=== PATIENT | female | born 1955 | race Caucasian/White ===

== ENCOUNTER → 2018-08-26 | Outpatient (CLI) | payer OTHER ==
[~2018-08-26] MED LIST: ADULT LOW DOSE81 MG PO; AVAPRO 150 MG150 M1 PO; BACTRIM DS TAB1 EACH PO; BENTYL 10 MG CA10 MG PO; CALCIUM 600 +1 EAC1 PO; CELLCEPT500 MG PO; COLESTIPOL HCL1 G1 PO; DUONEB 2.5-0.5 M3 ML; FISH OIL 1,2001 EAC3 PO; IMURAN 50MG TAB50 M1 PO; LEVAQUIN 750 M750 MG PO; MEDROLDOSEPACK PO; MICARDIS 80 MG80 MG PO; NAPROSYN500 MG PO; NEURONTIN 400400 M1 PO; NORCO 5-325 TA1 EACH PO; OMEPRAZOLE 20 M20 MG PO; ONGLYZA5 MG PO; OSTERA PO; OSTERA TABLET1 EACH PO; PREDNISONE 1 MG1 M1 PO; PREDNISONE 10 M10 M1 PO; PRISTIQ50 M1; PRISTIQ50 M1 PO; PRISTIQ50 MG PO; PROAIR HFA8.5 GM INH; PROMETHAZINE D480 ML PO; PROPRANOLOL 20M20 MG PO; PROPRANOLOL 8080 M1 PO; PURINETHOL50 MG PO; SIMVASTATIN20 MG PO; SLOW FE 160MG160 MG PO; SYNTHROID125 MCG PO; TESSALON PERLE100 MG PO; TOLTERODINE TART4 MG PO; TRAZODONE HCL100 MG PO; TUSSIN COUGH15 MG; VENLAFAXINE HC225 MG PO; VITAMIN D3400 UNIT PO; XYZAL5 MG PO; ZETIA10 MG PO; ZOCOR20 MG PO; ZOFRAN ODT4 MG PO
== END ==
LOC: M.ULTRA 07:30
DX: K76.0 Fatty (change of) liver, not elsewhere classified (principal); K75.4 Autoimmune hepatitis; D89.9 Disorder involving the immune mechanism, unspecified; K74.0 Hepatic fibrosis

== ENCOUNTER → 2018-10-02 | Outpatient (CLI) | payer OTHER ==
[2018-10-02 11:53] LABS: ABSOLUTE BASOPHILS 0.1 thou/uL (0.0-0.2); ABSOLUTE EOSINOPHILS 0.3 thou/uL (0.0-0.7); ABSOLUTE MONOCYTES 0.6 thou/uL (0.0-1.2); ABSOLUTE NEUTROPHILS 3.8 thou/uL (1.6-8.1); BASOPHILS 1.4 %; EOSINOPHILS 5.9 %; HEMATOCRIT 43.8 % (37.0-47.0); HEMOGLOBIN 14.5 gm/dL (12.0-15.0); LYMPHOCYTES 17.1 %; MCH 30.6 pg (26.0-34.0); MCV 92.6 fL (80.0-100.0); MONOCYTES 10.5 %; MPV 8.8 fl. (7.2-11.1); NUCLEATED RBCS 0 /100WBC; PLATELET COUNT* 294 thou/uL (150-400); POLYS 65.1 %; RBC 4.72 mil/uL (4.20-5.00); RDW-CV 13.8 % (10.5-14.5); WBC 5.8 thou/uL (4.0-11.0)
[2018-10-02 12:00] LABS: PROTIME 10.3 Seconds (9.20-11.50)
[2018-10-02 12:18] LABS: ALBUMIN 3.9 g/dL (3.4-5.0); CALCIUM 9.5 mg/dL (8.5-10.1); CREATININE 0.9 mg/dL (0.6-1.3); POTASSIUM 3.7 mmol/L (3.5-5.1); TOTAL BILIRUBIN 0.6 mg/dL (<0.1-1.0); TOTAL PROTEIN 7.9 g/dL (6.4-8.2)
== END ==
LOC: M.LAB 11:33
DX: D89.9 Disorder involving the immune mechanism, unspecified (principal); K75.4 Autoimmune hepatitis

== ENCOUNTER → 2018-12-09 | Outpatient (CLI) | payer OTHER ==
[2018-12-09 09:01] LABS: ABSOLUTE EOSINOPHILS 0.1 thou/uL (0.0-0.7); ABSOLUTE LYMPHOCYTES 1.2 thou/uL (0.8-5.3); ABSOLUTE MONOCYTES 0.5 thou/uL (0.0-1.2); ABSOLUTE NEUTROPHILS 4.4 thou/uL (1.6-8.1); BASOPHILS 0.4 %; HEMATOCRIT 41.1 % (37.0-47.0); HEMOGLOBIN 13.6 gm/dL (12.0-15.0); LYMPHOCYTES 19.5 %; MCH 29.8 pg (26.0-34.0); MCHC 33.2 g/dL (28.0-37.0); MCV 89.7 fL (80.0-100.0); MONOCYTES 8.2 %; MPV 8.6 fl. (7.2-11.1); NUCLEATED RBCS 0 /100WBC; PLATELET COUNT* 296 thou/uL (150-400); POLYS 69.9 %; RBC 4.58 mil/uL (4.20-5.00); RDW-CV 14.4 % (10.5-14.5); WBC 6.3 thou/uL (4.0-11.0)
[2018-12-09 09:43] LABS: MAGNESIUM 2.2 mg/dL (1.8-2.4)
[2018-12-09 09:57] LABS: CHOLESTEROL 159 mg/dL (<200); HDL CHOLESTEROL 34 mg/dL (>40); LDL CHOLESTEROL 102 mg/dL (<100); TC:HDL 4.7 Ratio (Not establshd); TRIGLYCERIDE 118 mg/dL (<150); VLDL 24 mg/dL (<40)
[2018-12-09 09:58] LABS: SERUM ASSESSMENT Clear
[2018-12-09 10:20] LABS: % SATURATION 31 % (20-39); IRON 81 ug/dL (50-175)
[2018-12-09 10:49] LABS: CREATININE 0.8 mg/dL (0.6-1.3); PHOSPHORUS* 4.6 mg/dL (2.5-4.9)
[2018-12-09 20:13] LABS: ALBUMIN 3.9 g/dL (3.4-5.0); CALCIUM 9.2 mg/dL (8.5-10.1); CREATININE 0.8 mg/dL (0.6-1.3); POTASSIUM 3.6 mmol/L (3.5-5.1); TOTAL BILIRUBIN 0.3 mg/dL (<0.1-1.0); TOTAL PROTEIN 7.1 g/dL (6.4-8.2)
[2018-12-10 02:07] LABS: GLYCOHEMOGLOBIN (HGB A1C) 5.7 % (4.8-5.6)
== END ==
LOC: M.LAB 08:23
PROVIDERS: Internal Medicine
DX: K91.2 Postsurgical malabsorption, not elsewhere classified (principal)

== ENCOUNTER → 2019-03-16 | Outpatient (CLI) | payer OTHER ==
[2019-03-16 09:29] LABS: ABSOLUTE EOSINOPHILS 0.2 thou/uL (0.0-0.7); ABSOLUTE LYMPHOCYTES 0.8 thou/uL (0.8-5.3); ABSOLUTE MONOCYTES 0.4 thou/uL (0.0-1.2); ABSOLUTE NEUTROPHILS 4.9 thou/uL (1.6-8.1); BASOPHILS 0.3 %; EOSINOPHILS 3.7 %; HEMATOCRIT 43.1 % (37.0-47.0); HEMOGLOBIN 14.2 gm/dL (12.0-15.0); LYMPHOCYTES 11.9 %; MCH 30.5 pg (26.0-34.0); MCHC 32.9 g/dL (28.0-37.0); MCV 92.6 fL (80.0-100.0); MONOCYTES 7.1 %; MPV 8.1 fl. (7.2-11.1); NUCLEATED RBCS 0 /100WBC; PLATELET COUNT* 337 thou/uL (150-400); RBC 4.65 mil/uL (4.20-5.00); RDW-CV 13.6 % (10.5-14.5); WBC 6.3 thou/uL (4.0-11.0)
[2019-03-16 09:57] LABS: ALBUMIN 3.8 g/dL (3.4-5.0); ALKALINE PHOSPHATASE 105 U/L (46-116); ANION GAP 7 mmol/L (7-16); BUN 9 mg/dL (7-18); CALCIUM 9.2 mg/dL (8.5-10.1); CHLORIDE 102 mmol/L (98-107); CHOLESTEROL 148 mg/dL (<200); CO2 31 mmol/L (21-32); CREATININE 0.8 mg/dL (0.6-1.3); GLUCOSE 104 mg/dL (70-99); HDL CHOLESTEROL 39 mg/dL (>40); LDL CHOLESTEROL 86 mg/dL (<100); MAGNESIUM 2.1 mg/dL (1.8-2.4); POTASSIUM 3.3 mmol/L (3.5-5.1); SGOT 29 U/L (15-37); SGPT 31 U/L (30-65); SODIUM 140 mmol/L (136-145); TC:HDL 3.8 Ratio (Not establshd); TOTAL BILIRUBIN 0.7 mg/dL (<0.1-1.0); TOTAL PROTEIN 7.9 g/dL (6.4-8.2); TRIGLYCERIDE 119 mg/dL (<150); VLDL 24 mg/dL (<40)
[2019-03-16 09:59] LABS: CALCIUM 9.3 mg/dL (8.5-10.1); CREATININE 0.8 mg/dL (0.6-1.3); PHOSPHORUS* 4.1 mg/dL (2.5-4.9); SERUM ASSESSMENT Clear
[2019-03-16 10:30] LABS: % SATURATION 37 % (20-39); IRON 116 ug/dL (50-175)
[2019-03-16 23:07] LABS: GLYCOHEMOGLOBIN (HGB A1C) 5.5 % (4.8-5.6)
== END ==
LOC: M.LAB 08:59
PROVIDERS: Surgery
DX: K91.2 Postsurgical malabsorption, not elsewhere classified (principal); K75.4 Autoimmune hepatitis; D89.9 Disorder involving the immune mechanism, unspecified

== ENCOUNTER → 2019-04-16 | Outpatient (CLI) | payer OTHER | LOC: M.LAB 07:30 | DX: E87.6 Hypokalemia (principal) ==

== ENCOUNTER → 2019-09-10 | Outpatient (CLI) | payer OTHER ==
[2019-09-11 02:06] LABS: IgA 248 mg/dL (87-352)
[2019-09-14 15:11] LABS: GLIADIN IGA AB 7 units (0-19)
== END ==
LOC: M.LAB 09:35
PROVIDERS: Nurse Practitioner Family
DX: R19.7 Diarrhea, unspecified (principal)

== ENCOUNTER → 2020-03-13 | Outpatient (CLI) | payer OTHER | LOC: M.RAD 03-09 14:38 → M.ULTRA 07:45 | DX: N28.1 Cyst of kidney, acquired (principal); K75.4 Autoimmune hepatitis; K75.81 Nonalcoholic steatohepatitis (NASH); D89.9 Disorder involving the immune mechanism, unspecified; K74.0 Hepatic fibrosis; Z98.84 Bariatric surgery status; Z71.3 Dietary counseling and surveillance; Z90.49 Acquired absence of other specified parts of digestive tract; M85.88 Other specified disorders of bone density and structure, other site ==

== ENCOUNTER → 2020-08-01 | Outpatient (CLI) | payer OTHER ==
[2020-08-01 10:24] LABS: CALCIUM 8.7 mg/dL (8.5-10.1); CREATININE 0.7 mg/dL (0.6-1.3)
[2020-08-01 10:27] LABS: MAGNESIUM 2.2 mg/dL (1.8-2.4)
[2020-08-01 10:38] LABS: CHOLESTEROL 127 mg/dL (<200); HDL CHOLESTEROL 52 mg/dL (>40); LDL CHOLESTEROL 59 mg/dL (<100); TC:HDL 2.4 Ratio (Not establshd); TRIGLYCERIDE 81 mg/dL (<150); VLDL 16 mg/dL (<40)
[2020-08-01 10:39] LABS: SERUM ASSESSMENT Clear
[2020-08-01 11:05] LABS: % SATURATION 2 % (20-39); IRON 5 ug/dL (50-175)
[2020-08-02 03:06] LABS: GLYCOHEMOGLOBIN (HGB A1C) 5.4 % (4.8-5.6)
== END ==
LOC: M.LAB 08:48
DX: Z98.84 Bariatric surgery status (principal)

== ENCOUNTER → 2020-08-11 | Outpatient (CLI) | payer OTHER ==
--- NOTE | 2020-08-11 17:02 | CARDNUC ---
[place] [address] CARDIAC NUCLEAR IMAGING REPORT Name: RHONDA NANCE Room: [facility]#: [id number] Admission: 08/11/20 Attend Phys: Kenn Crystal, Discharge: Date of : 57 Date of Service: 08/11/20 1702 Report #: [id number] THIS REPORT FOR: cc: Kenn Caceres MD, Michael B. MD Liston, Michael J. MD [facility] ~ APPROVED REPORT Imaging Protocol: Stress Tc-99m/Rest Tc-99m 1 day Study performed: 08/11/2020 08:30:00 Indication: Chest pain, Palpitations Patient Location: Out-Patient Stress Tech: Jane Cruz Stress Nurse: Bita Munoz RN Ht: 5 ft 5 in Wt: 147 lbs BSA: 1.74 m2 BMI: 24.45 Medical History Medical History: Diabetes, HTN, Hyperlipidemia Medications: asa-81, atorvastin, zetia Allergies: madi inhibitors, flu viru Cardiac Risk Factors: Age, DM, FHX of CAD, HTN, Hyperlipidemia Exercise History: Physically active Resting Data Rest SPECT myocardial perfusion imaging was performed in supine position 30 minutes following the intravenous injection of 9.6 mCi of Tc-99m Sestamibi. Time of rest injection: 09:05 The images were gated to evaluate regional wall motion and calculate left ventricular ejection fraction. Administration Route: IV Administration Site: Right Arm Exercise Stress At peak stress, the patient was injected intravenously with 29.2mCi of Tc-99m Sestamibi. Time of stress injection: 11:05 Administration Route: IV Administration Site: Right Arm Heart Rate at time of stress injection: [address] [place] [address] CARDIAC NUCLEAR IMAGING REPORT Name: RHONDA NANCE Room: [facility]#: [id number] Admission: 08/11/20 Attend Phys: Kenn Crystal, Discharge: Date of : 57 Date of Service: 08/11/20 1702 Report #: [id number] Patient continued to exercise for 1 minute(s). Gated Stress SPECT was performed 30 minutes after stress injection. The images were gated to evaluate regional wall motion and calculate left ventricular ejection fraction. Prone imaging was performed. Stress Test Details Stress Test: Exercise stress testing was performed using a Serafin protocol. HR Max Heart Rate (APMHR): 156 bpm Resting HR: 68 bpm Target HR (85% APMHR): 132 bpm Max HR Achieved: 143 bpm % of APMHR: 91 Recovery HR: 82 bpm BP Resting BP: 160/40 mmHg Max BP: 218/60 mmHg Recovery BP: 173/80 mmHg ECG Resting ECG: Sinus Rhythm Stress ECG: Sinus Tachycardia ST Change: None Arrhythmia: None Recovery ECG: Sinus Rhythm Recovery ST Change: None Recovery Arrhythmia: None Clinical Reason for Termination: Leg pain/Claudication, Fatigue Exercise duration: 8 min 56 sec Exercise capacity: 10.16 METs Overall Exercise Capacity for Age: Superior Functional Aerobic Impairment 91% The patient tolerated standard Serafin protocol exercise without significant cardiac symptoms. Stress ECG Conclusion Baseline twelve-lead EKG shows sinus rhythm without significant ST segment or T wave abnormality. EKGs obtained during and post exercise show sinus rhythm and sinus tachycardia with no significant ST segment or T wave changes when compared to baseline. There were no significant [place] [address] CARDIAC NUCLEAR IMAGING REPORT Name: RHONDA NANCE Room: [facility]#: [id number] Admission: 08/11/20 Attend Phys: Kenn Crystal, Discharge: Date of : 57 Date of Service: 08/11/20 1702 Report #: [id number] Study Quality Study: Good Artifact: No artifact Study Data At rest, the left ventricular ejection fraction was 86%.. Post stress, the left ventricular ejection was 81%.. 0.95 Perfusion Perfusion studies obtained at rest and post exercise stress showed uniform uptake of the radioisotope throughout the myocardium. There were no defects to suggest infarct or ischemia. Wall Motion Normal left ventricular wall motion. Nuclear Conclusion ECG Findings: negative for ischemia Clinical Findings: negative for ischemia Nuclear Findings: negative for ischemia Exercise Capacity: normal Left Ventricular Function: normal Risk Study: low Perfusion images show no defect to suggest infarct or ischemia. Left ventricular systolic function appears normal on gated studies. This is a low risk study. <Conclusion> Baseline twelve-lead EKG shows sinus rhythm without significant ST segment or T wave abnormality. EKGs obtained during and post exercise show sinus rhythm and sinus tachycardia with no significant ST segment or T wave changes when compared to baseline. There were no significant stress-induced arrhythmias. <ELECTRONICALLY SIGNED> By: Kenn Crystal MD, FACC 08/11/201701 01 01 Kenn Crystal MD, FACC /INF
== END ==
LOC: M.NUC 08-02 12:36
PROVIDERS: ATTEND Internal Medicine Cardiovascular Disease
DX: R00.0 Tachycardia, unspecified (principal); R07.89 Other chest pain; R00.2 Palpitations; E11.9 Type 2 diabetes mellitus without complications; I10 Essential (primary) hypertension; E78.5 Hyperlipidemia, unspecified; Z79.82 Long term (current) use of aspirin; Z79.899 Other long term (current) drug therapy

== ENCOUNTER → 2020-09-11 | Outpatient (CLI) | payer OTHER | LOC: M.ULTRA 07:43 | DX: K74.00 Hepatic fibrosis, unspecified (principal); K75.4 Autoimmune hepatitis; K75.81 Nonalcoholic steatohepatitis (NASH); D64.9 Anemia, unspecified; Z71.3 Dietary counseling and surveillance; Z90.49 Acquired absence of other specified parts of digestive tract ==

== ENCOUNTER → 2020-09-28 | Outpatient (CLI) | payer OTHER ==
[2020-09-28 09:27] LABS: ABSOLUTE EOSINOPHILS 0.1 thou/uL (0.0-0.7); ABSOLUTE LYMPHOCYTES 0.7 thou/uL (0.8-5.3); ABSOLUTE MONOCYTES 0.5 thou/uL (0.0-1.2); ABSOLUTE NEUTROPHILS 3.1 thou/uL (1.6-8.1); EOSINOPHILS 1.7 %; HEMATOCRIT 40.7 % (37.0-47.0); HEMOGLOBIN 13.5 gm/dL (12.0-15.0); LYMPHOCYTES 15.9 %; MCH 30.2 pg (26.0-34.0); MCHC 33.2 g/dL (28.0-37.0); MCV 91.1 fL (80.0-100.0); MONOCYTES 10.7 %; MPV 7.8 fl. (7.2-11.1); NUCLEATED RBCS 0 /100WBC; PLATELET COUNT* 312 thou/uL (150-400); POLYS 70.7 %; RBC 4.47 mil/uL (4.20-5.00); RDW-CV 12.9 % (10.5-14.5); WBC 4.4 thou/uL (4.0-11.0)
[2020-09-28 09:43] LABS: ALBUMIN 3.7 g/dL (3.4-5.0); ALKALINE PHOSPHATASE 94 U/L (46-116); ANION GAP 5 mmol/L (7-16); BUN 11 mg/dL (7-18); CALCIUM 8.8 mg/dL (8.5-10.1); CHLORIDE 104 mmol/L (98-107); CHOLESTEROL 113 mg/dL (<200); CO2 29 mmol/L (21-32); CREATININE 0.7 mg/dL (0.6-1.3); GLUCOSE 96 mg/dL (70-99); HDL CHOLESTEROL 46 mg/dL (>40); LDL CHOLESTEROL 54 mg/dL (<100); POTASSIUM 3.9 mmol/L (3.5-5.1); SERUM ASSESSMENT Clear; SGOT 21 U/L (15-37); SGPT 21 U/L (30-65); SODIUM 138 mmol/L (136-145); TC:HDL 2.5 Ratio (Not establshd); TOTAL BILIRUBIN 0.5 mg/dL (<0.1-1.0); TRIGLYCERIDE 69 mg/dL (<150); VLDL 14 mg/dL (<40)
[2020-09-29 02:06] LABS: GLYCOHEMOGLOBIN (HGB A1C) 5.3 % (4.8-5.6)
== END ==
LOC: M.LAB 09:04
DX: E11.9 Type 2 diabetes mellitus without complications (principal); I10 Essential (primary) hypertension; K75.4 Autoimmune hepatitis; E03.9 Hypothyroidism, unspecified; E78.5 Hyperlipidemia, unspecified; G43.809 Other migraine, not intractable, without status migrainosus; F32.9 Major depressive disorder, single episode, unspecified; N32.81 Overactive bladder

== ENCOUNTER → 2020-11-02 | Outpatient (CLI) | payer OTHER ==
[~2020-11-02] MED LIST changes: +AMBIEN 10 MG TA10 MG PO; +CALCIUM CARBON600 M1 PO; +CREON DR 36,001 EACH PO; +DICLOFENAC SODI75 MG PO; +FIBER CHOICE PO; +FLUTICASONE NASAL; +L-LYSINE500 M1 PO; +LIPITOR20 MG PO; +NEURONTIN300 MG PO; +PREORBOTIC CAP1 EACH PO; +PRISTIQ100 MG PO; +SLOW FE142 MG PO; +SYNTHROID137 MC1 PO; +THERA-M TABLET1 EACH PO; +VITAMIN D3 PO
== END ==
LOC: M.LAB 08:39
DX: E03.9 Hypothyroidism, unspecified (principal); K91.2 Postsurgical malabsorption, not elsewhere classified; Z98.84 Bariatric surgery status

== ENCOUNTER → 2020-11-21 | Outpatient (CLI) | payer OTHER ==
[~2020-11-21] VITALS: Ht 165.1 cm; Wt 64.4 kg
[2020-11-21 10:54] VITALS: BP 149/65
[2020-11-21 11:01] LABS: HEMATOCRIT 40.6 % (37.0-47.0); HEMOGLOBIN 13.4 gm/dL (12.0-15.0); MCH 29.6 pg (26.0-34.0); MCV 89.9 fL (80.0-100.0); MPV 7.8 fl. (7.2-11.1); RBC 4.52 mil/uL (4.20-5.00); RDW-CV 13.5 % (10.5-14.5); WBC 5.1 thou/uL (4.0-11.0)
[2020-11-21 11:12] LABS: ANION GAP 7 mmol/L (7-16); APTT 24.7 Seconds (25.0-31.3); BUN 14 mg/dL (7-18); CALCIUM 8.3 mg/dL (8.5-10.1); CHLORIDE 107 mmol/L (98-107); CO2 27 mmol/L (21-32); CREATININE 0.7 mg/dL (0.6-1.3); GLUCOSE 97 mg/dL (70-99); POTASSIUM 3.9 mmol/L (3.5-5.1); PROTIME 10.2 Seconds (9.20-11.50); SODIUM 141 mmol/L (136-145)
[2020-11-21 11:16] LABS: ALBUMIN 3.6 g/dL (3.4-5.0); ALKALINE PHOSPHATASE 109 U/L (46-116); SGOT 29 U/L (15-37); SGPT 27 U/L (30-65); TOTAL BILIRUBIN 0.5 mg/dL (<0.1-1.0); TOTAL PROTEIN 7.1 g/dL (6.4-8.2)
[2020-11-21 11:17] LABS: SERUM ASSESSMENT Clear
[2020-11-21 11:29] LABS: CHOLESTEROL 135 mg/dL (<200); HDL CHOLESTEROL 54 mg/dL (>40); LDL CHOLESTEROL 68 mg/dL (<100); TC:HDL 2.5 Ratio (Not establshd); TRIGLYCERIDE 65 mg/dL (<150); VLDL 13 mg/dL (<40)
[2020-11-21 12:57] VITALS: BP 130/71
--- NOTE | 2020-11-21 13:05 | EKG ---
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
[2020-11-21 13:12] VITALS: BP 131/62
[2020-11-21 13:30] VITALS: BP 159/58
[2020-11-21 14:00] VITALS: BP 131/62
[2020-11-21 14:30] VITALS: BP 149/67
--- NOTE | 2020-11-23 12:36 | CARD ---
[address] [address] CARDIAC CATH REPORT Name: RHONDA NANCE Room: [facility]#: [id number] Admission: 11/21/20 Attend Phys: Kenn Crystal MD Discharge: Date of : 57 Report #: [id number] THIS REPORT FOR: cc: Kenn Caceres MD, Michael B. MD ~ Kenn Crystal MD [facility] APPROVED REPORT Study performed: 11/21/2020 11:30:18 Patient Details Patient Status: Out-Patient Room #: The patient is a 65 year-old female Event Personnel Kenn Crystal Ceo & Board Director, Mindi Fall RN RN, Rebecca Herring RTR Scrub, Cassandra Heller RTR Monitor, Gordon Tovar BOAT WRAPPER Monitor Procedures Performed Art Access - R femoral artery* Left Heart Cath w/or w/o Coronaries [id number] [facility] Hemostasis w/ Mynx Procedure Narrative The patient was brought electively to the Cardiac Catheterization Laboratory and was prepped and draped in a sterile manner. The right femoral was infiltrated with 2% Lidocaine subcutaneous anesthesia. A 6F sheath was inserted into the right femoral artery. Coronary angiography was performed using coronary diagnostic catheters. The right coronary system was accessed and visualized with a Diagnostic JR4 catheter. The left coronary system was accessed and visualized with a Diagnostic JL4 catheter. The left ventricle was accessed and visualized with a PIG Tail catheter. Left ventricular/Aortic Valve gradient assessed . Left ventriculogram was performed in WARD projection. Hemostasis was obtained with manual pressure following sheath removal without any complications. The patient tolerated the procedure well and there were no complications associated with the procedure. There was no hematoma. Intraoperative Conscious Sedation Sedation start time: 1219 Case end Time: 123 Fentanyl 25 mcg Versed 1 [place] [address] CARDIAC CATH REPORT Name: RHONDA NANCE Room: [facility]#: [id number] Admission: 11/21/20 Attend Phys: Kenn Crystal MD Discharge: Date of : 57 Report #: [id number] Fluoro Time: 2.9 minutes Dose: DAP 89368 cGycm2 654 mGy Contrast Type and Amount: Visipaque 140 ml Diagnostic Cath Left Main The left main coronary artery is normal and trifurcates into a left anterior descending, intermediate ramus and circumflex coronary artery. LAD The left anterior descending coronary artery has 20% narrowing in its midportion but is otherwise free of significant disease. Diagonal 1 A first diagonal branch is free of significant disease. Circumflex The circumflex coronary artery has a 30% ostial narrowing. The remainder of the vessel is free of significant disease. OM1 A small in caliber first obtuse marginal branch is free of significant disease. OM2 A small caliber second obtuse marginal branch is free of significant disease. Right Coronary The right coronary artery is small in caliber and has 50% tubular narrowing in its midportion. R PDA The PDA is small in caliber but free of significant disease. RPLV A branch right posterior lateral LV branch is free of significant disease. Ramus A large intermediate ramus branch that is bifurcated with marginal distribution is free of significant disease. Left Ventriculography The left ventricle is normal in size with normal contractility. The left ventricular ejection fraction is estimated to be 65-70%. Hemodynamics The aortic pressure is 156/75 mmHg with a mean of 110 mmHg. The left ventricular pressure is 166/5 mmHg with a mean of mmHg. The left ventricular end diastolic pressure is 14 mmHg. Conclusion 1. Nonocclusive coronary artery disease as outlined above. 2. Normal left-ventricular end-diastolic pressure. 3. Normal left ventricular systolic [place] [address] CARDIAC CATH REPORT Name: RHONDA NANCE Room: [facility]#: [id number] Admission: 11/21/20 Attend Phys: Kenn Crystal MD Discharge: Date of : 57 Report #: [id number] 1. Continue aggressive risk factor modification and medical management. <ELECTRONICALLY SIGNED> By: Kenn Crystal MD, [facility] 11/23/20 [address] [place], [place] [address]asher Crystal MD, FACC /INF
== END | disposition home or self-care (01) ==
LOC: M.CL 11-07 11:00
PROVIDERS: ATTEND Internal Medicine Cardiovascular Disease
DX: R07.9 Chest pain, unspecified (principal); I25.10 Atherosclerotic heart disease of native coronary artery without angina pectoris; I10 Essential (primary) hypertension; E11.9 Type 2 diabetes mellitus without complications; E78.5 Hyperlipidemia, unspecified; K75.4 Autoimmune hepatitis; Z98.890 Other specified postprocedural states; Z79.899 Other long term (current) drug therapy; Z90.49 Acquired absence of other specified parts of digestive tract; Z90.710 Acquired absence of both cervix and uterus; Z79.82 Long term (current) use of aspirin; Z20.822 Contact with and (suspected) exposure to COVID-19; Z88.8 Allergy status to other drugs, medicaments and biological substances

== ENCOUNTER → 2020-12-14 | Outpatient (CLI) | payer OTHER | LOC: M.LAB 09:26 | DX: K91.2 Postsurgical malabsorption, not elsewhere classified (principal); E03.9 Hypothyroidism, unspecified; Z98.84 Bariatric surgery status ==

== ENCOUNTER → 2021-01-16 | Outpatient (CLI) | payer OTHER | LOC: M.CT 09:18 | DX: K44.9 Diaphragmatic hernia without obstruction or gangrene (principal); M41.85 Other forms of scoliosis, thoracolumbar region; I70.90 Unspecified atherosclerosis; E03.9 Hypothyroidism, unspecified; K75.4 Autoimmune hepatitis; K74.00 Hepatic fibrosis, unspecified; K75.81 Nonalcoholic steatohepatitis (NASH); R97.8 Other abnormal tumor markers; J98.11 Atelectasis; Z90.49 Acquired absence of other specified parts of digestive tract; Z90.710 Acquired absence of both cervix and uterus ==

== ENCOUNTER 2021-08-23 03:50 | Emergency (ER) | payer MEDICARE, OTHER ==
[~2021-08-23] VITALS: Ht 165.1 cm; Wt 63.0 kg
[2021-08-23 05:02] LABS: HEMATOCRIT 42.5 % (37.0-47.0); HEMOGLOBIN 14.1 gm/dL (12.0-15.0); MCH 30.6 pg (26.0-34.0); MCHC 33.2 g/dL (28.0-37.0); MCV 92.1 fL (80.0-100.0); MPV 7.8 fl. (7.2-11.1); NUCLEATED RBCS 0 /100WBC; PLATELET COUNT* 228 thou/uL (150-400); RBC 4.61 mil/uL (4.20-5.00); RDW-CV 13.4 % (10.5-14.5)
[2021-08-23 05:21] LABS: INFLUENZA A ANTIGEN Negative (Negative); INFLUENZA B ANTIGEN Negative (Negative)
[2021-08-23 05:32] LABS: CALCIUM 7.8 mg/dL (8.5-10.1); CREATININE 0.7 mg/dL (0.6-1.3); POTASSIUM 3.1 mmol/L (3.5-5.1)
[2021-08-23 05:37] LABS: ALBUMIN 3.3 g/dL (3.4-5.0); TOTAL BILIRUBIN 0.9 mg/dL (<0.1-1.0); TOTAL PROTEIN 6.6 g/dL (6.4-8.2)
[2021-08-23 06:13] LABS: ABSOLUTE LYMPHOCYTES 0.1 thou/uL (0.8-5.3); ABSOLUTE MONOCYTES 0.2 thou/uL (0.0-1.2); ABSOLUTE NEUTROPHILS 3.7 thou/uL (1.6-8.1)
[2021-08-23 06:14] LABS: CLUMPED PLTS OCCASIONAL; PLATELET ESTIMATE INCREASED
[2021-08-23] MEDS ORDERED: HYDROCODON-ACE1 EAC7 PO (06:21)
[2021-08-23] MEDS ORDERED: ZOFRAN ODT4 MG PO (06:21)
[2021-08-23 06:46] VITALS: BP 138/70
--- NOTE | 2021-08-23 12:27 | EKG ---
[place] [address] ELECTROCARDIOGRAM REPORT Name: GOYORHONDA WILLIAMSON Room: [facility]#: [id number] Admission: 08/23/21 Attend Phys: Discharge: 08/23/21 Date of : 57 Date of Service: 08/23/21 0457 Report #: [id number] THIS REPORT FOR: //name// [facility] ED Test Date: 2021-08-23 Test Time: 04:57:15 Pat Name: RHONDA NANCE Department: Room: Gender: Supervisor Lime: : 1955 Requested By: Chelsey King Order Number: [id number] MD: Kenn Crystal Measurements Intervals [place] Rate: 105 P: 54 CO: 145 QRS: -4 QRSD: 92 T: 63 QT: 361 QTc: 478 Interpretive Statements Sinus tachycardia Abnormal inferior Q waves Nonspecific ST segment depression Compared to ECG 11/21/2020 11:25:41 Inferior Q waves now present Electronically Signed On 08-23-2021 12:26:44 MENDING CARRIER by Kenn Crystal [email or web address] <ELECTRONICALLY SIGNED> By: Kenn Crystal MD, FACC 08/23/21 1226 0457 0457 Kenn Crystla MD, FAC /EPI
== END 2021-08-23 06:46 | disposition home or self-care (01) ==
LOC: M.ERS 03:50
PROVIDERS: Personal Emergency Response Attendant
DX: K52.9 Noninfective gastroenteritis and colitis, unspecified (principal); Z20.822 Contact with and (suspected) exposure to COVID-19; R11.2 Nausea with vomiting, unspecified; E86.0 Dehydration; E87.6 Hypokalemia; R10.13 Epigastric pain; I10 Essential (primary) hypertension; E78.5 Hyperlipidemia, unspecified; G43.909 Migraine, unspecified, not intractable, without status migrainosus; Z90.710 Acquired absence of both cervix and uterus; Z90.89 Acquired absence of other organs; Z90.49 Acquired absence of other specified parts of digestive tract; Z98.84 Bariatric surgery status; Z79.82 Long term (current) use of aspirin; Z79.899 Other long term (current) drug therapy; Z88.8 Allergy status to other drugs, medicaments and biological substances; Z88.7 Allergy status to serum and vaccine